=== PATIENT | female | born 2000 | race Caucasian/White ===

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

== ENCOUNTER 2021-05-28 22:54 | Inpatient (IN) | payer MEDICAID ==
[~2021-05-28] VITALS: Ht 165.1 cm; Wt 60.8 kg
[~2021-05-28 22:54] MED LIST: NITR-87 MT
[2021-05-29] MEDS ORDERED: METHYLERGONOVINE MALEATE 0.2 MG/ML IM PRN
[2021-05-29] MEDS ORDERED: LIDOCAINE HCL 1% 20ML VIAL (Pyxis) INJ INFIL SCH
[2021-05-29] MEDS ORDERED: PENICILLIN G POTASSIUM 5 MMU in DEXT 5% WATER 100 ML IV SCH
[2021-05-29] MEDS ORDERED: BUTORPHANOL TARTRATE 2 MG/ML VIAL IV PRN
[2021-05-29] MEDS ORDERED: DEXT 5%/LR + PITOCIN 20UNITS/L 1,000 ML IV SCH
[2021-05-29] MEDS ORDERED: LACTATED RINGERS 1,000 ML IV SCH
[2021-05-29] MEDS ORDERED: NALOXONE HCL 0.4 MG/ML 1ML VIAL IM PRN
[2021-05-29 00:36] LABS: BASOPHILS % 0.3 % (0.0-2.0); EOSINOPHILS % 0.4 % (0.0-5.0); HEMOGLOBIN. 9.4 g/dL (12.0-16.0); LYMPHOCYTES % 24.9 % (20.0-50.0); MEAN CORPUSCULAR HEMOGLOBIN 26.3 pg (28.0-32.0); MEAN CORPUSCULAR VOLUME 78.7 fL (81.0-99.0); MEAN PLATELET VOLUME 8.5 fl (7.4-10.4); MONOCYTES % 8.8 % (2.0-8.0); NEUTROPHILS % 65.6 % (40.0-76.0); PLATELET 228 x1000/uL (130-400); RED BLOOD CELL COUNT 3.56 mill/uL (4.2-5.4); RED CELL DISTRIBUTION WIDTH 16.4 % (11.6-14.6)
[2021-05-29 00:49] LABS: CLARITY URINE CLEAR (CLEAR); COLOR URINE YELLOW (YELLOW); KETONES URINE TRACE (NEGATIVE); LEUKOCYTE ESTERASE URINE NEGATIVE (NEGATIVE); NITRITE URINE NEGATIVE (NEGATIVE); OCCULT BLOOD URINE NEGATIVE (NEGATIVE); PH URINE 6.5 (4.5-8.0); PROTEIN URINE 1+ (NEGATIVE); SPECIFIC GRAVITY URINE 1.023 (1.005-1.030)
[2021-05-29 01:04] LABS: METHADONE URINE SCREEN NEGATIVE (NEGATIVE); OPIATES URINE SCREEN NEGATIVE (NEGATIVE); PHENCYCLIDINE URINE SCREEN NEGATIVE (NEGATIVE)
[2021-05-29 01:05] LABS: *AMPHETAMINES SCREEN URINE NEGATIVE (NEGATIVE); *BARBITURATES SCREEN URINE NEGATIVE (NEGATIVE); *BENZODIAZEPINES SCREEN URINE NEGATIVE (NEGATIVE)
[2021-05-29 01:06] LABS: *COCAINE SCREEN URINE NEGATIVE (NEGATIVE)
[2021-05-29 01:08] LABS: CANNABINOID URINE SCREEN NEGATIVE (NEGATIVE)
[2021-05-29 01:14] LABS: HEPATITIS B SURFACE ANTIGEN NEGATIVE
[2021-05-29 02:03] LABS: INR 0.9; PARTIAL THROMBOPLASTIN TIME 27.3 sec (23.4-31.0)
[2021-05-29] MEDS ORDERED: DIPHENHYDRAMINE 25MG CAPSULE PO PRN (04:00)
[2021-05-29] MEDS ORDERED: PENICILLIN G POTASSIUM 2.5 MMU in DEXTROSE 5% WATER 50 ML IV SCH (04:00)
[2021-05-29] MEDS ORDERED: LANOLIN OINT 7GM TUBE TOP PRN (04:00)
[2021-05-29] MEDS ORDERED: BISACODYL 10MG SUPP PR PRN (04:00)
[2021-05-29] MEDS ORDERED: ACETAMINOPHEN WITH CODEINE 300/30MG TABLET PO PRN (04:00)
[2021-05-29] MEDS ORDERED: RHO(D) IMMUNE GLOBULIN 300 MCG/SYR IM PRN (04:00)
[2021-05-29] MEDS ORDERED: HEMORRHOIDAL SUPP PR PRN (04:00)
[2021-05-29] MEDS ORDERED: IBUPROFEN 400MG TABLET PO PRN (04:00)
[2021-05-29] MEDS: DEXT 5%/LR + PITOCIN 20UNITS/L 1,000 ML IV SCH ×2 (04:07→05:05)
[2021-05-29 04:20] VITALS: BP 100/65
[2021-05-29] MEDS: BENZOCAINE/LANOLIN/ALOE VERA SPRAY TOP PRN (06:23)
[2021-05-29 08:15] VITALS: BP 108/62
[2021-05-29] MEDS: SIMETHICONE 80MG TABLET CHEW PO SCH ×4 (08:57→21:46)
[2021-05-29] MEDS: MAGNESIUM/ALUMINUM HYDROXIDE/SIMETHICONE 30ML UDC PO SCH ×4 (08:57→21:46)
[2021-05-29] MEDS ORDERED: INFLUENZA VACCINE 05/PF 0.5 ML SYRINGE IM ONE (09:00)
[2021-05-29] MEDS ORDERED: TETANUS, DIPHTHERIA, PERTUSSIS VAC/PF 0.5ML (>10YR OLD) IM ONE (09:00)
[2021-05-29] MEDS: GLYCERIN/WITCH HAZEL LEAF MEDICATED PAD TOP PRN (09:23)
[2021-05-29] MEDS: IBUPROFEN 800MG TABLET PO PRN ×2 (09:24→16:28)
[2021-05-29 15:37] VITALS: BP 91/50
[2021-05-29] MEDS ORDERED: MEASLES,MUMPS&RUBELLA VACCINE 1 VIAL SUBCUT ONE (16:30)
[2021-05-29 20:00] VITALS: BP 96/65
[2021-05-29] MEDS: DOCUSATE SODIUM 100MG CAPSULE PO SCH (21:46)
[2021-05-30 04:00] VITALS: BP 98/61
[2021-05-30] MEDS: IBUPROFEN 800MG TABLET PO PRN ×3 (05:44→22:31)
[2021-05-30 06:43] LABS: BASOPHILS % 0.4 % (0.0-2.0); EOSINOPHILS % 0.3 % (0.0-5.0); LYMPHOCYTES % 35.7 % (20.0-50.0); MEAN CORPUSCULAR HEMOGLOBIN 26.3 pg (28.0-32.0); MEAN CORPUSCULAR VOLUME 80.8 fL (81.0-99.0); MEAN PLATELET VOLUME 7.8 fl (7.4-10.4); NEUTROPHILS % 56.6 % (40.0-76.0); PLATELET 163 x1000/uL (130-400); RED BLOOD CELL COUNT 2.49 mill/uL (4.2-5.4); RED CELL DISTRIBUTION WIDTH 16.6 % (11.6-14.6)
[2021-05-30 06:52] LABS: HEMOGLOBIN. 6.5 g/dL (12.0-16.0)
[2021-05-30 06:53] LABS: HEMATOCRIT. 20.1 % (36.0-48.0)
[2021-05-30 07:30] VITALS: BP 96/50
[2021-05-30] MEDS: SIMETHICONE 80MG TABLET CHEW PO SCH ×3 (08:35→22:31)
[2021-05-30] MEDS: MAGNESIUM/ALUMINUM HYDROXIDE/SIMETHICONE 30ML UDC PO SCH ×3 (08:35→22:30)
[2021-05-30] MEDS: FERROUS SULFATE 325MG TABLET PO SCH ×3 (08:36→18:10)
[2021-05-30] MEDS: PRENATAL VIT/FE FUMARATE/FA TABLET PO SCH (08:36)
[2021-05-30] MEDS: GLYCERIN/WITCH HAZEL LEAF MEDICATED PAD TOP PRN ×2 (08:42→23:03)
[2021-05-30] MEDS: BENZOCAINE/LANOLIN/ALOE VERA SPRAY TOP PRN (08:42)
[2021-05-30 15:51] VITALS: BP 100/60
[2021-05-30 20:00] VITALS: BP 116/69
[2021-05-30] MEDS: DOCUSATE SODIUM 100MG CAPSULE PO SCH (22:30)
[2021-05-31] MEDS ORDERED: FERR325T23 MT (03:40)
[2021-05-31 03:55] VITALS: BP 98/82
[2021-05-31 07:30] VITALS: BP 102/45
[2021-05-31] MEDS: FERROUS SULFATE 325MG TABLET PO SCH (08:27)
[2021-05-31] MEDS: PRENATAL VIT/FE FUMARATE/FA TABLET PO SCH (08:27)
== END 2021-05-31 13:05 | disposition home or self-care (01) | DRG 560 ==
LOC: 8 EST LDRP 22:54 → OBSVTOIN 22:54 → 8 EST A/PP 05-29 04:38
PROVIDERS: ADMIT Obstetrics & Gynecology; ATTEND Obstetrics & Gynecology
PROC: 10E0XZZ Delivery of Products of Conception, External Approach (ICD-10-PCS; principal; 2021-05-29)
PROC: 0KQM0ZZ Repair Perineum Muscle, Open Approach (ICD-10-PCS; 2021-05-29)
PROC: 3E0R3BZ Introduction of Anesthetic Agent into Spinal Canal, Percutaneous Approach (ICD-10-PCS; 2021-05-29)
PROC: 00HU33Z Insertion of Infusion Device into Spinal Canal, Percutaneous Approach (ICD-10-PCS; 2021-05-29)
DX: O98.52 Other viral diseases complicating childbirth (principal); Z37.0 Single live birth; D62 Acute posthemorrhagic anemia; Z20.822 Contact with and (suspected) exposure to COVID-19; O90.81 Anemia of the puerperium; B06.9 Rubella without complication; O70.1 Second degree perineal laceration during delivery; Z3A.39 39 weeks gestation of pregnancy
CPT/HCPCS: 36415; 80305; 81003; 85025; 86592; 86703; 86762; 86850; 86900; 87340; 87426; 90686; 90707; 90715; 99281; G0378; J0595; J2540; J2590; J3490; J7060; J7120